=== PATIENT | female | born 1955 | race Caucasian/White ===

== ENCOUNTER 2016-11-20 12:58 | Emergency (ER) | payer OTHER ==
[2016-11-20 14:30] VITALS: BP 139/66
--- NOTE | 2016-11-20 14:45 | UC ---
Respiratory Complaint HPI - HPI Summary HPI Summary: COUGH, CONGESTION X APPROX 1.5 WKS. had same thing but he did not go to the Drs. She stayed home 11/14 and 11/17 and felt a little better to go back to work for 2 days. Bejou much worse by yesterday afternoon. + sinus pain, cough and wheezing and fatigue. Here with dtr Unique who is home health aide. Did not even need nebulizer or prednisone or inhaler for illness in past. she has taken augmentin in past without any difficulty. - History of Current Complaint Chief Complaint: UCRespiratory Stated Complaint: COUGH,VOMITING Time Seen by Provider: 11/20/16 14:39 - Allergies/Home Medications Allergies/Adverse Reactions: Allergies Allergy/AdvReac Type Severity Reaction Status Date / Time Sulfa Drugs Allergy Intermediate Hives Verified 03/21/14 18:37 Latex Allergy Swelling Verified 11/20/16 14:31 Shellfish Allergy AdvReac Diarrhea Verified 03/21/14 18:37 and Vomiting Home Medications: Home Medications Escitalopram Oxalate [Lexapro] 10 mg PO DAILY 11/20/16 [History Confirmed ] Estradiol VAGINAL TAB(NF) [Vagifem] 10 mcg VAGINAL SEE INSTRUCTIONS 11/20/16 [ History Confirmed 11/20/16] Metronidazole (Topical) [Metrogel] 1 % EX DAILY 11/20/16 [History Confirmed 10/25] PMH/Surg Hx/FS Hx/Imm Hx Previously Healthy: Yes Endocrine History Of: Reports: Thyroid Disease - hypo Cardiovascular History Of: Reports: Hypertension - Surgical History Surgical History: Yes Surgery Procedure, Year, and Place: HYSTERECTOMY,THYROIDECTOMY.BILA BREAST REDUCTION, LAPAROSCOPY DX-ENDOMETREOSIS, BREAST BIOPSY-BENIGN - Family History Known Family History: Negative: Cardiac Disease, Diabetes - Social History Alcohol Use: Occasionally Substance Use Type: None Smoking Status (MU): Former Smoker When Did the Patient Quit Smoking/Using Tobacco: 38 YRS AGO Review of Systems Constitutional: Fever, Fatigue Skin: Negative Eyes: Negative ENT: Other - + sinus pain Respiratory: Cough Cardiovascular: Negative Gastrointestinal: Negative Genitourinary: Negative Motor: Negative Neurovascular: Negative Musculoskeletal: Negative Neurological: Negative Psychological: Negative All Other Systems Reviewed And Are Negative: Yes Physical Exam Triage Information Reviewed: Yes Appearance: Well-Nourished, Ill-Appearing - appears fatigued, very pleasant Vital Signs: Initial Vital Signs Temp 100 F 11/20/16 14:24 Pulse 96 11/20/16 14:24 Resp 18 11/20/16 14:24 BP 139/66 11/20/16 14:24 Pulse Ox 94 11/20/16 14:24 Vital Signs Reviewed: Yes Eye Exam: Normal ENT: Positive: Pharyngeal erythema - +PND, no exudate. + b/l frontal and maxillary tenderness., TMs normal. Negative: Muffled/hoarse voice Dental Exam: Normal Neck exam: Normal Neck: Positive: Supple, Nontender, No Lymphadenopathy Respiratory: Positive: Lungs clear, No respiratory distress, No accessory muscle use, Decreased breath sounds. Negative: Crackles, Rhonchi, Stridor, Wheezing Cardiovascular Exam: Normal Cardiovascular: Positive: RRR, No Murmur, Pulses Normal, Brisk Capillary Refill Abdominal Exam: Normal Abdomen Description: Positive: Nontender, Soft Musculoskeletal Exam: Normal Neurological Exam: Normal Psychological Exam: Normal Skin Exam: Normal UC Diagnostic Evaluation - Laboratory O2 Sat by Pulse Oximetry: 94 Re-Evaluation - Re-Evaluation First Eval Re-Evaluation Time: 15:30 Change: Improved - s/p albuterol nebulizer, improved breath sounds w/o w/r/r. Respiratory Course/Dx - Course Course Of Treatment: CXR - RML pneumonia - Differential Dx/Diagnosis Differential Diagnosis/HQI/PQRI: Bronchitis, Laryngitis, Lower Resp Infection, Sinusitis Provider Diagnoses: sinusitis, pneumonia Discharge - Discharge Plan Condition: Stable Disposition: HOME Prescriptions: Albuterol 2.5MG/3ML (0.083%)* [Ventolin 2.5 MG/3 ML NEB.ALEKS*] 2.5 mg INH Q4H #1 neb.aleks Amoxicillin/Clavulanate TAB* [Augmentin TAB 875*] 875 mg PO BID #20 tab Methylprednisolone [Medrol Dosepak 4 MG*] 4 mg PO DAILY #1 mars Patient Education Materials: Community Acquired Pneumonia (ED), Sinusitis (ED) Forms: *Work Release Referrals: Aristides PORTILLO,[facility] Sadler [Primary Care Provider] - 4 Days Additional Instructions: Make sure to use a probiotic while you are taking any antibiotic. Fluids, rest. chest xray showed Rt middle lobe pneumonia. You are being treated with augmentin , medrol dose pack adn albuterol via nebulizer. Use this every 6hrs while awake until 2-3 hrs after your symptoms have resolved. We have printed out a copy of your chest xray report and CD with the images. Make sure that you have a repeat xray done 4-6 wks from now to rule out any other underlying issues. We discussed risks of prednisone including but not limited to anxiety, agitation , insomnia, GI upset, elevated blood pressures and blood sugar readings, adrenal crisis and avascular necrosis of the hip.
[2016-11-20] MEDS ORDERED: Albuterol 2.5 MG/3 ML NEB.SOL* (0.083%) INH ONE (14:52)
--- NOTE | 2016-11-20 15:23 | RAD ---
HISTORY: Cough, fatigue COMPARISONS: None VIEWS: 2: Frontal dual-energy and lateral views of the chest. FINDINGS: CARDIOMEDIASTINAL SILHOUETTE: The cardiomediastinal silhouette is normal. PHYLLIS: The phyllis are normal. PLEURA: The costophrenic angles are sharp. No pleural abnormalities are noted. LUNG PARENCHYMA: There is faint patchy alveolar opacification of the right lower lobe ABDOMEN: The upper abdomen is clear. There is no subphrenic gas. BONES AND SOFT TISSUES: No bone or soft tissue abnormalities are noted. OTHER: None. IMPRESSION: PATCHY RIGHT LOWER LOBE ATELECTASIS VERSUS EARLY CONSOLIDATION. RECOMMEND FOLLOW UP UNTIL RESOLUTION TO EXCLUDE UNDERLYING PULMONARY PARENCHYMAL PATHOLOGY.
== END 2016-11-20 16:04 | disposition home or self-care (01) ==
LOC: UCCORT 12:58
DX: J18.9 Pneumonia, unspecified organism (principal); J32.9 Chronic sinusitis, unspecified; Z88.2 Allergy status to sulfonamides; E03.9 Hypothyroidism, unspecified; I10 Essential (primary) hypertension; Z87.891 Personal history of nicotine dependence
CPT/HCPCS: 71020; 99212; G0463

== ENCOUNTER 2017-07-07 10:41 | Emergency (ER) | payer OTHER ==
[2017-07-07 11:03] VITALS: BP 147/72
--- NOTE | 2017-07-07 11:45 | UC ---
Throat Pain/Nasal Ronald HPI - HPI Summary HPI Summary: sinus pain and pressure x 1 week + nasal congestion , cough , pnd no fever, no chills - History of Current Complaint Chief Complaint: UCRespiratory Stated Complaint: SINUS Time Seen by Provider: 07/07/17 11:27 Hx Obtained From: Patient ?: No Onset/Duration: Sudden Onset, Still Present Severity: Moderate Cough: None Associated Signs & Symptoms: Positive: Sinus Discomfort, Nasal Discharge. Negative: Fever, Rash - Allergies/Home Medications Allergies/Adverse Reactions: Allergies Allergy/AdvReac Type Severity Reaction Status Date / Time Sulfa Antibiotics Allergy Hives Verified 07/07/17 10:56 Home Medications: Home Medications Escitalopram Oxalate [Lexapro 10 mg] 1 tab DAILY 07/07/17 [History Confirmed ] Levothyroxine TAB* [Synthroid 100 MCG TAB*] 1 tab DAILY 07/07/17 [History Confirmed 07/07/17] Losartan Potassium 1 tab DAILY 07/07/17 [History Confirmed 07/07/17] Rosuvastatin Calcium [Crestor] 1 tab DAILY 07/07/17 [History Confirmed 07/07/17] PMH/Surg Hx/FS Hx/Imm Hx Previously Healthy: Yes Cardiovascular History: Hypertension - Surgical History Surgical History: Yes Surgery Procedure, Year, and Place: Thyroidectomy - Family History Known Family History: Positive: None - Social History Alcohol Use: Occasionally Substance Use Type: None Smoking Status (MU): Never Smoked Tobacco - Immunization History Most Recent Influenza Vaccination: 2016 Most Recent Tetanus Shot: UTD Most Recent Pneumonia Vaccination: NONE Review of Systems Constitutional: Negative Skin: Negative Eyes: Negative ENT: Nasal Discharge, Sinus Congestion All Other Systems Reviewed And Are Negative: Yes Physical Exam Triage Information Reviewed: Yes Appearance: Well-Appearing, No Pain Distress, Well-Nourished Vital Signs: Initial Vital Signs Temp 98.7 F 07/07/17 10:58 Pulse 86 07/07/17 10:58 Resp 16 07/07/17 10:58 BP 147/72 07/07/17 10:58 Pulse Ox 96 07/07/17 10:58 Eye Exam: Normal ENT: Positive: Normal ENT inspection, Hearing grossly normal, Nasal congestion, Nasal drainage, TMs normal Neck: Positive: Supple, Nontender, No Lymphadenopathy Respiratory: Positive: Chest non-tender, Lungs clear, Normal breath sounds Cardiovascular: Positive: RRR, No Murmur, Pulses Normal Skin: Positive: rashes Throat Pain/Nasal Course/Dx - Differential Dx/Diagnosis Provider Diagnoses: sinusitis Discharge - Discharge Plan Condition: Stable Disposition: HOME Prescriptions: Amoxicillin/Clavulanate TAB* [Augmentin TAB 875*] 875 mg PO BID #20 tab Patient Education Materials: Sinusitis (ED) Additional Instructions: follow up in one weeks
== END 2017-07-07 11:58 | disposition home or self-care (01) ==
LOC: UCCORT 10:41 → MERGE 10:41 → UCCORT 11:58
DX: J32.9 Chronic sinusitis, unspecified (principal); I10 Essential (primary) hypertension; E89.0 Postprocedural hypothyroidism; Z88.2 Allergy status to sulfonamides
CPT/HCPCS: 99202; G0463

== ENCOUNTER 2017-12-18 11:01 | Emergency (ER) | payer OTHER ==
--- NOTE | 2017-12-18 13:54 | UC ---
General HPI - HPI Summary HPI Summary: 62 yo female c/o fever, cough, contestion, sore throat since Thursday (today is Thursday). + uri sx last week, but sx had ameliorated over the weekend. No rash. No GI issues reported. - History of Current Complaint Stated Complaint: CONGESTION Time Seen by Provider: 12/18/17 13:51 Hx Obtained From: Patient - Allergy/Home Medications Allergies/Adverse Reactions: Allergies Allergy/AdvReac Type Severity Reaction Status Date / Time MS Sulfa Drugs [Sulfa Drugs] Allergy Intermediate Hives Verified 12/18/17 13:46 MS Latex [Latex] Allergy Swelling Verified 12/18/17 13:46 MS Sulfa Antibiotics Allergy Hives Verified 12/18/17 13:46 [Sulfa Antibiotics] MS Shellfish Allergy AdvReac Diarrhea Verified 12/18/17 13:46 [Shellfish Allergy] and Vomiting Home Medications: Home Medications Albuterol 2.5MG/3ML (0.083%)* [Ventolin 2.5 MG/3 ML NEB.ALEKS*] 2.5 mg INH Q4H PRN 12/18/17 [History Confirmed 12/18/17] PMH/Surg Hx/FS Hx/Imm Hx Previously Healthy: Yes - Surgical History Surgical History: Yes Surgery Procedure, Year, and Place: Thyroidectomy - Family History Known Family History: Positive: None Negative: Cardiac Disease, Diabetes - Social History Alcohol Use: Occasionally Substance Use Type: None Smoking Status (MU): Never Smoked Tobacco When Did the Patient Quit Smoking/Using Tobacco: 38 YRS AGO - Immunization History Most Recent Influenza Vaccination: 2016 Most Recent Tetanus Shot: UTD Most Recent Pneumonia Vaccination: NONE Review of Systems Constitutional: Fever, Fatigue Skin: Negative Eyes: Negative ENT: Sore Throat, Nasal Discharge, Sinus Congestion Respiratory: Cough Cardiovascular: Negative Gastrointestinal: Negative Genitourinary: Negative Motor: Negative Neurovascular: Negative Musculoskeletal: Negative Neurological: Negative Psychological: Negative Is Patient Immunocompromised?: No All Other Systems Reviewed And Are Negative: Yes Physical Exam Triage Information Reviewed: Yes Appearance: Well-Nourished - sitting up. Looks tired. NAD. Vital Signs Reviewed: Yes Eye Exam: Normal - grossly normal ENT: Positive: Pharyngeal erythema - mild post pharyngeal redness, no exudates appreciated, TM dull - TMs joy au Neck exam: Normal Neck: Positive: Supple, Nontender, No Lymphadenopathy Respiratory Exam: Other - + rhonchorus cough Respiratory: Positive: Chest non-tender, Lungs clear, Normal breath sounds, No respiratory distress, No accessory muscle use Cardiovascular Exam: Normal Cardiovascular: Positive: RRR, No Murmur, Pulses Normal, Brisk Capillary Refill Abdominal Exam: Normal Abdomen Description: Positive: Nontender Musculoskeletal Exam: Normal - gait steady. moves all 4 ext's Neurological Exam: Normal - grossly nonfocal Psychological Exam: Normal - conversing easily and appropriately Skin Exam: Normal - non-diaphoretic. no visible or reported rash Course/Dx - Course Course Of Treatment: No new problems in CCC. Reviewed results, coa / tx plan with Ms. Rocael Pretty. Questions as posed answered to the best of my ability. - Differential Dx - Multi-Symptom Provider Diagnoses: Bronchitis acute Discharge - Discharge Plan Condition: Stable Disposition: HOME Prescriptions: Albuterol HFA INHALER* [Ventolin HFA Inhaler*] 1 - 2 puff INH Q6H PRN #1 mdi PRN Reason: Wheezing DOXYcycline CAP(*) [DOXYcycline 100MG CAP(*)] 100 mg PO BID #20 cap Patient Education Materials: Acute Bronchitis (ED) Forms: *Work Release Referrals: Aristides PORTILLO,[facility] Sadler [Primary Care Provider] - Additional Instructions: Follow up with your primary care physician, per routine. Seek medical attention for worse or new problems in the meantime.
[2017-12-18 13:59] VITALS: BP 147/78
== END 2017-12-18 14:40 | disposition home or self-care (01) ==
LOC: UCCORT 11:01
DX: J20.9 Acute bronchitis, unspecified (principal); Z87.891 Personal history of nicotine dependence
CPT/HCPCS: 87502; 99212; G0463

== ENCOUNTER 2018-09-11 11:31 | Emergency (ER) | payer OTHER ==
[2018-09-11 13:25] VITALS: BP 135/78
--- NOTE | 2018-09-16 11:31 | UC ---
Respiratory Complaint HPI - HPI Summary HPI Summary: per nurses triage: BEGAN LAST WEEK WITH A SCRATCHY THROAT. DIDNT FEEL TOO BAD UNTIL YESTERDAY SHE DEVELOPED SINUS CONGESTION , COUGH, CHEST CONGESTION, COUGH IS PRODUCTIVE AT TIMES. RUUNY NOSE. FEELING TIRED AND ACHEY. NO N//V/D - History of Current Complaint Chief Complaint: UCRespiratory Stated Complaint: SINUS COUGH Time Seen by Provider: 09/11/18 13:43 Hx Obtained From: Patient ?: No Onset/Duration: Sudden Onset, Lasting Weeks Severity Initially: Moderate Severity Currently: Severe Pain Intensity: 8 Pain Scale Used: 0-10 Numeric Character: Cough: Productive Aggravating Factors: Allergens, Deep Breaths, Recumbent Position Alleviating Factors: Nothing Associated Signs And Symptoms: Positive: Chills, URI, Nasal Congestion - Allergies/Home Medications Allergies/Adverse Reactions: Allergies Allergy/AdvReac Type Severity Reaction Status Date / Time latex Allergy Unknown Swelling Verified 09/11/18 13:14 shellfish derived Allergy Unknown diarrhea Verified 09/11/18 13:14 and vomiting Sulfa (Sulfonamide Allergy Unknown Hives Verified 09/11/18 13:14 Antibiotics) Home Medications: Home Medications Cholecalciferol (Vitamin D3) [Vitamin D3] 1,000 unit PO DAILY 09/11/18 [History Confirmed 09/11/18] PMH/Surg Hx/FS Hx/Imm Hx Previously Healthy: Yes - Surgical History Surgical History: Yes Surgery Procedure, Year, and Place: Thyroidectomy. HYSTERECOMY,. LAPEROSCOPY. BREAST REDUCTION - Family History Known Family History: Positive: None Negative: Cardiac Disease, Diabetes - Social History Alcohol Use: Occasionally Substance Use Type: None Smoking Status (MU): Former Smoker Type: Cigarettes Amount Used/How Often: 20 YRS AGO When Did the Patient Quit Smoking/Using Tobacco: 38 YRS AGO - Immunization History Most Recent Influenza Vaccination: 2016 Most Recent Tetanus Shot: UTD Most Recent Pneumonia Vaccination: NONE Review of Systems All Other Systems Reviewed And Are Negative: Yes Constitutional: Positive: Chills, Fatigue Skin: Positive: Negative Eyes: Positive: Negative ENT: Positive: Sore Throat, Ear Ache, Nasal Discharge, Sinus Pain/Tenderness Respiratory: Positive: Cough Cardiovascular: Positive: Negative Gastrointestinal: Positive: Negative Genitourinary: Positive: Negative Motor: Positive: Negative Neurovascular: Positive: Negative Musculoskeletal: Positive: Negative Neurological: Positive: Headache Psychological: Positive: Negative Is Patient Immunocompromised?: No Physical Exam Triage Information Reviewed: Yes Completion Of Physical Exam Limited Due To: Patient is uncooperative with exam Appearance: Well-Nourished, Ill-Appearing, Pain Distress Vital Signs: Initial Vital Signs Temp 98.2 F 09/11/18 13:18 Pulse 79 09/11/18 13:18 Resp 17 09/11/18 13:18 BP 135/78 09/11/18 13:18 Pulse Ox 96 09/11/18 13:18 Vital Signs Reviewed: Yes Eye Exam: Normal ENT: Positive: Pharyngeal erythema, Nasal congestion, Nasal drainage, TM bulging , Sinus tenderness Dental Exam: Normal Neck exam: Normal Neck: Positive: Supple, Nontender, No Lymphadenopathy Respiratory: Positive: Chest non-tender, Lungs clear, No respiratory distress Cardiovascular Exam: Normal Cardiovascular: Positive: RRR, Pulses Normal Abdominal Exam: Normal Abdomen Description: Positive: No Organomegaly Musculoskeletal Exam: Normal Musculoskeletal: Positive: Strength Intact, ROM Intact, No Edema Neurological Exam: Normal Neurological: Positive: Alert, Muscle Tone Normal Psychological Exam: Normal Skin Exam: Normal UC Diagnostic Evaluation - Laboratory O2 Sat by Pulse Oximetry: 96 Respiratory Course/Dx - Course Course Of Treatment: hx obtained, exam performed ,meds reviewed, treated for sinusitis - Differential Dx/Diagnosis Differential Diagnosis/HQI/PQRI: Bronchitis, Influenza, Laryngitis, Sinusitis Provider Diagnoses: sinusitis Discharge - Sign-Out/Discharge Documenting (check all that apply): Patient Departure All imaging exams completed and their final reports reviewed: No Studies - Discharge Plan Condition: Stable Disposition: HOME Prescriptions: Azithromyxin MAYNOR (NF) [Z-Maynor (Zithromax) 250 mg tabs #6] 2 tab PO .TODAY, THEN 1 DAILY #6 tab Patient Education Materials: Sinusitis (ED) Referrals: Aristides PORTILLO,[facility] Sadler [Primary Care Provider] - Additional Instructions: 1. take the medication as prescribed. 2. Increase clear fluid intake 3. USe warm compresses for the sinuses 4. COntinue with tylenol as needed for headache and pain 5. Follow up if not improving - Billing Disposition and Condition Condition: STABLE Disposition: Home
== END 2018-09-11 14:05 | disposition home or self-care (01) ==
LOC: UCCORT 11:31
DX: R05 Cough (principal); J32.9 Chronic sinusitis, unspecified; Z88.2 Allergy status to sulfonamides; Z91.040 Latex allergy status; Z91.013 Allergy to seafood; Z87.891 Personal history of nicotine dependence
CPT/HCPCS: 99212; G0463